=== PATIENT | female | born 1980 | race Caucasian/White ===

== ENCOUNTER 2016-06-03 17:33 | Emergency (ER) | payer OTHER ==
[~2016-06-03] VITALS: Ht 157.5 cm; Wt 90.9 kg
[2016-06-03 17:59] VITALS: BP 134/82; PULSE 101; RESP 16; O2SAT 99
--- NOTE | 2016-06-03 20:22 | ED.REPORT ---
HPI-General Illness Date of Service Jun 03, 2016 ED Provider: Javier Blair DO A 36 year old female with a history of anxiety presents to the ED with right flank pain onset two weeks ago. The pain radiates to her lower back and is exacerbated with movement. The patient denies chest pain, SOB, abdominal pain, pleuritic pain, fever, weakness, numbness, tingling, bowel incontinence, urinary incontinence, nausea, vomiting, diarrhea, dysuria, hematuria, or other symptoms. She was seen by her PCP since onset who recommended heat compress and Ibuprofen, which she used with no relief. The patient was also seen in the [facility] ED and was prescribed muscle relaxers, with no relief. Nursing Notes Stated Complaint: LOWER BACK/SIDE PAIN Chief Complaint: Back Pain or Injury Nursing Notes Reviewed: Yes Allergies: Coded Allergies: No Known Allergies (Verified , 06/03/16) Scheduled PRN Hydrocodone-Acetaminophen 5-325 mg (Hydrocodone-Acetaminophen 5-325 mg) 1 Each Tablet 1 TABLET PO QID PRN PRN For Pain General Time Seen by MD: 20:08 Chief Complaint Other (Right Flank Pain) Hx Obtained From: Patient Arrived By: Walk-in Sudden in Onset?: No Onset Occurred: More than a week ago... (2 weeks) Symptom Duration: Since onset Location: : Back (Right Flank) Quality: Painful Radiation: : Back Severity: Current: Moderate Severity: Maximum: Moderate Pertinent Negative: Relieved by nothing Recent Healthcare: Recent doctor visit Similar Sx Previous: Yes Past Medical History Past Medical History Anxiety Past Surgical History Reports: (x2) Smoking History Unknown if Ever Smoker Social History Other Social History: Good social support Ambulatory Status Independent Review of Systems - Tingling Full Review of Systems Constitutional: Denies: Fever, Weakness - generalized Respiratory: Denies: Non-productive cough, Pleuritic pain, Shortness of breath Cardiovascular: Denies: Chest pain GI: Denies: Abdominal pain, Diarrhea, Nausea, Vomiting Female: Reports: Flank pain (Right), Denies: Dysuria, Hematuria, Incontinence Musculoskeletal: Reports: Back pain Neurologic: Denies: Bladder dysfunction, Bowel dysfunction, Numbness, Weakness Complete sys rev & neg: except as marked. Physical Exam Vital Signs Vital Signs Date Time Temp Pulse Resp B/P Pulse Ox O2 Delivery O2 Flow Rate FiO2 06/03/16 22:11 36.7 99 17 130/78 100 Room Air 06/03/16 17:59 36.9 101 16 134/82 99 Room Air Initial VS: Reviewed Head / Eyes: Atraumatic, Normocephalic ENT: Conjunctiva normal, No scleral icterus Neck: Supple, Full range of motion Respiratory: Breath sounds normal, Clear to auscultation, No respiratory distress Cardiovascular: Regular rate & rhythm, Heart sounds normal Skin: Warm, Dry, No cyanosis Neurologic: Alert, Oriented, Nonfocal Psychiatric: Mood/affect normal, Behavior normal, Normal thought content General/Constitutional: Awake, Alert Appearance / Presentation: Positive: Obese Abdomen: Soft Tenderness/Guarding/Rebound: Positive: Tender RUQ... Back: Full range of motion Flank / Spine / Paraspinal: Positive: Flank tender R Interpretation & Diagnostics US ABDOMEN: IMPRESSION: 1. Incomplete distention of the gallbladder secondary to nonfasting state limiting evaluation. No definite cholelithiasis or gallbladder wall thickening. 2. Increased hepatic echogenicity compatible with steatosis. Dictated by: Srinivas Clement M.D. on 06/03/2016 at 21:40 URINE : Negative URINE DIPSTICK: Bedside Urine Specific [place] * 1.020 Bedside Urine pH * 5 Bedside Urine Leukocyte Esterase * Negative Bedside Urine Nitrite * Negative Bedside Urine Protein * Negative Bedside Urine Ketones * + Small Bedside Urine Urobilinogen * Normal Bedside Urine Bilirubin * Negative Bedside Urine Occult Blood * Negative Urine to Lab * Yes Lab Results Interpretation Result Diagram: 06/03/16204906/03/162049 Test 06/03/16 19:47 06/03/16 20:50 Hold Urine Received (Received) White Blood Count 12.9th/mm3 (3.8-10.1) Red Blood Count 5.03mil/mm3 (3.90-5.20) Hemoglobin 13.4g/dL (12.0-15.6) Hematocrit 41.6% (35.0-46.0) Mean Corpuscular Volume 82.7fL (81-100) Mean Corpuscular Hemoglobin 26.6pg (27.0-35.0) Mean Corpuscular Hemoglobin Concent 32.2% (32.0-37.0) Red Cell Distribution Width 15.7% (12.3-15.4) Platelet Count 341bil/L (150-400) Neutrophils (%) (Auto) 55.3% (40-74) Lymphocytes (%) (Auto) 33.9% (14-46) Monocytes (%) (Auto) 6.0% (4-12) Eosinophils (%) (Auto) 4.0% (0-5) Basophils (%) (Auto) 0.5% (0-3) Sodium Level 137mEq/L (134-144) Potassium Level 3.8mEq/L (3.5-5.2) Chloride Level 99mEq/L (97-108) Carbon Dioxide Level 22mmol/L (18-29) Blood Urea Nitrogen 7mg/dL (6-20) Creatinine 0.80mg/dL (0.57-1.00) Estimat Glomerular Filtration Rate 117mL/min (>59) Glucose Level 79mg/dL (60-99) Calcium Level 9.6mg/dL (8.5-10.1) Magnesium Level 1.8mg/dL (1.6-2.6) Total Bilirubin 0.2mg/dL (0.0-1.2) Aspartate Amino Transf (AST/SGOT) 19U/L (0-50) Alanine Aminotransferase (ALT/SGPT) 20U/L (0-32) Alkaline Phosphatase 104U/L (25-150) Total Protein 7.8g/dL (6.4-8.4) Albumin 4.4g/dL (3.4-5.0) Lipase 32U/L (13-60) Hold [place] Top Tube Received (Received) Re-Eval/Medical Decision Med Decision/Clinical Course Overall patient points to her right upper quadrant however says that she has back pain, she has some tenderness in the right upper quadrant, her ultrasound and labs are reassuring, she does not have radicular back symptoms are signs or symptoms of pyelonephritis, or any other life-threatening pathology. I did prescribe her Deville. And recommend close outpatient follow-up. Return precautions given. Time of Eval: 21:50 Patient Status: Condition improved Re-Evaluation/Progress Note: Discussed with patient US and lab results, diagnosis, and plan for discharge. Follow-up and return to the ER instructions given. Patient agrees with plan for care and all questions were addressed. Counseled Regarding: Diagnosis, Lab results, Need for follow-up, When/why to return to ED Discharge & Departure Primary Impression: Pain, abdominal, nonspecific Disposition: Home Discharge Condition All VS Reviewed: Yes Condition: Improved Additional Instructions: Your workup was overall reassuring, I do not find a life-threatening cause for your symptoms. Take Deville in place of tramadol. Call your primary care in the morning for close follow-up. Return to the ER as needed for worsening symptoms. Referrals: Nazario Solitario MD (PCP) Scribe Attestation Portions of this note were transcribed by Lauren Paulino. I, Dr. Blair, personally performed the history, physical exam, and medical decision-making; I reviewed and confirmed the accuracy of the information in the transcribed note. Signed by: Deejay Silva, 06/03/2016, 22:37 copies to: Nazario Solitario MD, Timothy S DO Jun 03, 2016 20:21 LAUREN PAULINO Jun 03, 2016 20:28
[2016-06-03] MEDS ORDERED: Ondansetron 2 mg/mL 2 mL Inj IVPUSH PRN (20:25)
[2016-06-03] MEDS ORDERED: 0.9% Sodium Chloride 1,000 ML IV ONE (20:25)
[2016-06-03 21:03] LABS: BASOPHILS % (AUTO) 0.5 % (0-3); Mean Corpuscular Hemoglobin 26.6 pg (27.0-35.0); Mean Corpuscular Volume 82.7 fL (81-100); NEUTROPHILS % (AUTO) 55.3 % (40-74); Platelet Count 341 bil/L (150-400)
[2016-06-03 21:20] LABS: Magnesium 1.8 mg/dL (1.6-2.6)
--- NOTE | 2016-06-03 21:44 | DRSVH ---
PROCEDURE: US ABDOMEN ([id number]) INDICATIONS: RUQ pain TECHNIQUE: Real-time scanning was performed of the abdominal and retroperitoneal organs, with image documentatio n. COMPARISON: None. FINDINGS: Liver: Liver is normal in size and increased in echogenicity with coarse sonographic echotexture con sistent with fatty infiltration. Gallbladder: Gallbladder was contracted secondary to non-fasting state Limited evaluation. No defini te gallstones visualized. Patient was reportedly tender during examination. Biliary ducts: Intrahepatic bile ducts are non-dilated. Extrahepatic bile duct caliber measures 2-3 mm. Normal is 6-7 mm or less in diameter, or 10 mm or less post-cholecystectomy. Pancreas: Visualized portions of the pancreas are sonographically normal. Spleen: Spleen is normal in size and homogeneous in echotexture. Kidneys: Right kidney measures 10.4 cm long; left kidney measures 10.4 cm long. No hydronephrosis. Aorta: Visualized aorta is normal in caliber at less than 3 cm. Iliacs: Proximal common iliac arteries are not well seen deep to bowel gas. IVC: Intrahepatic inferior vena cava is patent. Miscellaneous: No free abdominal fluid. IMPRESSION: 1. Incomplete distention of the gallbladder secondary to nonfasting state limiting evaluation. No d efinite cholelithiasis or gallbladder wall thickening. 2. Increased hepatic echogenicity compatible with steatosis. Dictated by: Srinivas Clement M.D. on 06/03/2016 at 21:40 Approved by: Srinivas Clement M.D. on 06/03/2016 at 21:43
[2016-06-03] MEDS ORDERED: HYDROcodone-APAP 5-325 mg Tablet PO ONE (21:50)
[2016-06-03] MEDS ORDERED: HYDR-4003 PO (21:52)
[2016-06-03 22:11] VITALS: BP 130/78; PULSE 99; RESP 17; O2SAT 100
== END 2016-06-03 22:11 | disposition home or self-care (01) ==
LOC: SED 17:33
DX: R10.9 Unspecified abdominal pain (principal)
CPT/HCPCS: 36415; 76700; 80053; 81025; 83690; 83735; 85025; 96361; 96374; 96375; 99285; J1885; J2405; J7030